=== PATIENT | female | born 2000 | race Caucasian/White ===

== ENCOUNTER 2022-05-06 15:03 | Outpatient (CLI) | payer OTHER, SELFPAY ==
--- NOTE | ~2022-05-06 | MR_ITS ---
EXAMINATION: MR knee LT wo con DATE: 05/06/2022 15:46 INDICATION: Left knee pain TECHNIQUE: Magnetic resonance imaging (MRI) of the left knee was performed without intravenous contra st. Sequences included coronal PD-weighted FSE, coronal PD-weighted FS FSE, sagittal T2-weighted FSE , sagittal PD-weighted FS FSE and axial PD weighted fat saturated FSE. COMPARISON: None. FINDINGS: Medial compartment: Medial meniscus is normal. Partial-thickness cartilage loss with chondral surface regularity along th e medial tibial plateau and anterior weightbearing medial femoral condyle. Lateral compartment: Longitudinal tear extending obliquely to the inferior articular surface at the junction of the middle to peripheral third of the posterior body and posterior horn of the lateral meniscus. Deep chondral ulceration with prominent subarticular edema-like signal change and small central subchondral osteoph yte at the anterior weightbearing lateral femoral condyle. Patellofemoral compartment: Full/near full-thickness chondral fissuring at the trochlear groove. Additional deep chondral ulcerat ion at the cephalad aspect of the medial trochlea. Patellar articular cartilage is normal with tiny f ocus of susceptibility artifact along the cephalad aspect of the articular regions likely related to prior surgery. Ligaments and tendons: History cruciate ligament is normal. Expected appearance of an anterior cruciate ligament reconstruct ion with intact appearing graft and with interference screw at the distal aspect of the tibial tunnel . The medial collateral ligament and fibular collateral ligament complex are normal. Quadriceps tendo n is normal. There is mild patellar tendinopathy along a sagittally oriented scar along the central t endon consistent with a prior patellar tendon are graft harvest site. The visualized medial and later al hamstring tendons as well as the iliotibial band are normal. Fluid: Minimal left knee joint effusion at the suprapatellar pouch. No loose osteochondral bodies identified . Osseous/other: Bone alignment is normal. No fracture or pathologic marrow replacing process. IMPRESSION: 1. Tear at the posterior horn and posterior body of the lateral meniscus. 2. 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 3. Intact anterior cruciate ligament reconstruction likely utilizing a patellar tendon autograft. Reviewed, dictated and finalized at location A. S REPRESENT[employer]IVE [employer] IMPRESSION: 1. Tear at the posterior horn and posterior body of the lateral meniscus. 2. 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 3. Intact anterior cruciate ligament reconstruction likely utilizing a patellar tendon autograft.
== END 2022-05-06 15:04 | disposition home or self-care (01) ==
PROVIDERS: Visit Provider Orthopaedic Surgery
DX: M17.12 Unilateral primary osteoarthritis, left knee (principal); S83.282A Other tear of lateral meniscus, current injury, left knee, initial encounter; X58.XXXA Exposure to other specified factors, initial encounter
CPT/HCPCS: 73721

== ENCOUNTER 2025-05-21 07:18 | Outpatient (CLI) | payer OTHER, SELFPAY ==
--- NOTE | ~2025-05-21 | MR_ITS ---
EXAMINATION: MR knee LT wo con DATE: 05/21/2025 07:45 INDICATION: Left knee pain TECHNIQUE: Magnetic resonance imaging (MRI) of the left knee was performed without intravenous contrast. Sequences included coronal PD-weighted FSE, coronal PD-weighted FS FSE, sagittal T2-weighted FSE, sagittal PD-weighted FS FSE and axial PD weighted fat saturated FSE. COMPARISON: 05/06/2022 FINDINGS: Medial compartment: Medial meniscus is normal. Articular cartilage is normal. Lateral compartment: There has been decrease in size of the body, posterior horn and the anterior horn of the lateral meniscus consistent with interval partial meniscectomy. No evident recurrent meniscal tear. There is deep chondral ulceration along the anterior to central weightbearing lateral femoral condyle. Again seen is a small region of cortical irregularity with small central osteophytes at the central weightbearing lateral femoral condyle, now minimal subarticular edema-like signal change. Cartilage along the lateral tibial plateau appears relatively preserved. Patellofemoral compartment: New small focus of partial-thickness chondral ulceration without degenerative subchondral changes at the inferior aspect of the medial patellar facet. There is adjacent tiny focus of susceptibility artifact near the inferior aspect of the apical ridge likely related to prior surgery. Again seen is a small region of deep chondral fissuring at the cephalad aspect of the trochlear groove and and small region of deep chondral ulceration at the cephalad aspect of the medial trochlea. Ligaments and tendons: Anterior cruciate ligament reconstruction with intact graft. Posterior cruciate ligament is normal.. The medial collateral ligament and fibular collateral ligament complex are normal. There is a sagittally oriented scarring along the patella consistent with autograft harvest site for the anterior cruciate ligament reconstruction. Quadriceps tendon is normal. The visualized medial and lateral hamstring tendons as well as the iliotibial band are normal. Fluid: Physiologic amount of fluid in the joint space. No loose osteochondral bodies identified. Osseous/other: Bone alignment is normal. No fracture or pathologic marrow replacing process. IMPRESSION: 1. Interval partial meniscectomy of the lateral meniscus with no evident recurrent tear. 2. New small region of deep chondral ulceration at the inferior medial patellar facet. Relatively stable appearance of additional small regions of high-grade chondromalacia at the trochlea and weightbearing lateral femoral condyle, the latter with significant decrease in underlying subarticular edema-like signal change. 3. Intact appearing anterior cruciate ligament reconstruction utilizing patellar tendon autograft. 3. Small region of new Reviewed, dictated and finalized at location A. [employer] IMPRESSION: 1. Interval partial meniscectomy of the lateral meniscus with no evident recurr ent tear. 2. New small region of deep chondral ulceration at the inferior medial patellar facet. Relatively stable appearance of additional small regions of high-grade chondromalacia at the trochlea and weightbearing lateral femoral condyle, the l atter with significant decrease in underlying subarticular edema-like signal ch niharika. 3. Intact appearing anterior cruciate ligament reconstruction utilizing patella r tendon autograft. 3. Small region of new
== END 2025-05-21 07:19 | disposition home or self-care (01) ==
PROVIDERS: PCP Orthopaedic Surgery; Visit Provider Physician Assistant Surgical
DX: M94.262 Chondromalacia, left knee (principal); Z98.890 Other specified postprocedural states
CPT/HCPCS: 73721